=== PATIENT | female | born 1970 | race Caucasian/White ===

== ENCOUNTER 2019-06-25 06:01 | Emergency (ER) | payer OTHER ==
[2019-06-25 06:18] VITALS: RESP 18
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
[2019-06-25 06:52] VITALS: BP 135/88; PULSE 78; TEMP 98
== END 2019-06-25 06:53 | disposition home or self-care (01) ==
LOC: EC 06:01
DX: L03.115 Cellulitis of right lower limb (principal); L98.9 Disorder of the skin and subcutaneous tissue, unspecified; Z87.891 Personal history of nicotine dependence
CPT/HCPCS: 99282

== ENCOUNTER → 2019-11-12 | Outpatient (CLI) | payer OTHER ==
--- NOTE | 2019-11-15 07:57 | MM ---
Reason for exam: screening (asymptomatic). Baseline mammogram. History: Patient is postmenopausal. Physical Findings: Nurse did not find any significant physical abnormalities on exam. MG Screening Mammo w CAD Bilateral CC and MLO view(s) were taken. The breast tissue is almost entirely fat. Finding: There is a high density, circumscribed oval mass located 7 cm from the nipple in the 6 o'clock position of the left breast. These results were verbally communicated with the patient and result sheet given to the patient on 11/12/19. ASSESSMENT: Incomplete: need additional imaging evaluation, BI-RAD 0 RECOMMENDATION: Special view mammogram of the left breast.
--- NOTE | 2019-11-15 07:58 | MM ---
Reason for exam: additional evaluation requested from abnormal screening. History: Patient is postmenopausal. Physical Findings: Breast exam preformed at baseline screening. MG Work Up Mamm w CAD LT CC and MLO view(s) were taken of the left breast. There are scattered fibroglandular densities. Persistent mass left breast. These results were verbally communicated with the patient and result sheet given to the patient on 11/12/19. ASSESSMENT: Incomplete: need additional imaging evaluation, BI-RAD 0 RECOMMENDATION: Ultrasound of the left breast.
--- NOTE | 2019-11-15 08:00 | USB ---
Reason for exam: additional evaluation requested from abnormal screening. History: Patient is postmenopausal. US Breast Workup Limited LT Left limited breast ultrasound including focal area of concern, retroareolar and axilla demonstrates a 1.3 x 2.0 x 1.2cm oval, lobular, cystic cluster at 6 o'clock. These results were verbally communicated with the patient and result sheet given to the patient on 11/12/19. ASSESSMENT: Suspicious, BI-RAD 4 RECOMMENDATION: Ultrasound core biopsy of the left breast. (6 o'clock) Called Dr. Jennings office with mammographic findings and has scheduled an appointment for the patient for 12/16/19 at 12:[address] Rodgers. Biopsy scheduled for 12/01/19 at 8:00. PRELIMINARY REPORT CALLED AND FAXED TO DR. RODGERS ON 11/12/19.
== END | disposition home or self-care (01) ==
LOC: RADMAMWWP 13:13
PROVIDERS: ATTEND Family Medicine
DX: Z12.31 Encounter for screening mammogram for malignant neoplasm of breast (principal); R92.8 Other abnormal and inconclusive findings on diagnostic imaging of breast
CPT/HCPCS: 77065; 77067

== ENCOUNTER → 2019-12-01 | Day surgery (SDC) | payer OTHER ==
[2019-12-01 07:20] VITALS: RESP 16
[2019-12-01 08:57] VITALS: BP 111/76; PULSE 64; TEMP 98
--- NOTE | 2019-12-01 09:19 | USB ---
EXAMINATION TYPE: US breast aspiration single LT DATE OF EXAM: 12/01/2019 CLINICAL HISTORY: R92.8 abnl mammogram. TECHNIQUE: Ultrasound guided vaccuum assisted core biopsy of left breast. COMPARISON: 11/12/2019 ultrasound FINDINGS: The ultrasound guided cyst aspiration procedure was explained to the patient. The risks, b enefits, alternatives were discussed. An informed consent was then obtained. Timeout was performed. The patient was placed in supine positioning for imaging and for the procedure. The overlying skin w as prepped with betadine and sterilely draped in usual sterile fashion. Lidocaine 1% was used as ane sthetic into the skin and deeper breast tissue up to area of concern in the breast. Under ultrasound guidance, an 18-gauge vacuum assisted cyst aspiration device was used to obtain flui d sample. A ribbon biopsy clip was left in lesion. Good hemostasis was obtained with direct pressure. Discharge instructions were discussed with the pa gaby. The patient will follow up with the referring physician for results. Postprocedure mammogram: The patient was transferred to mammography for physician ordered post proced ure mammogram for clip placement verification. The clip is in the expected region of the cyst aspira tion. The patient tolerated the procedure well without any immediate complication. The patient was dischar ged to home in stable condition. IMPRESSION: 1. Successful cyst aspiration left breast.
== END ==
LOC: RADUSWWP 06:55
PROVIDERS: ATTEND Surgery
DX: N60.02 Solitary cyst of left breast (principal)
CPT/HCPCS: 88108; 88305; 77065; 76942; 19000; A4648; J2001

== ENCOUNTER → 2020-01-20 | Outpatient (CLI) | payer OTHER ==
[2020-01-20 14:36] VITALS: BP 131/88; PULSE 89; RESP 18; TEMP 97.7
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
== END | disposition home or self-care (01) ==
LOC: WWCWWP 14:19
PROVIDERS: ATTEND Surgery
DX: Z53.9 Procedure and treatment not carried out, unspecified reason (principal)

== ENCOUNTER → 2020-06-05 | Outpatient (CLI) | payer OTHER ==
--- NOTE | 2020-06-05 14:18 | USB ---
Reason for exam: follow-up at short interval from prior study. History: Patient is postmenopausal. Benign US breast aspiration single LT of the left breast, December 01, 2019. Physical Findings: Nurse did not find any significant physical abnormalities on exam. US Breast Limited LT Left limited breast ultrasound including focal area of concern, retroareolar and axilla demonstrates no cystic or solid lesion seen. Scanned 4-7 o'clock. Patient can return to normal screening. These results were verbally communicated with the patient and result sheet given to the patient on 06/05/20. ASSESSMENT: Negative, BI-RAD 1 RECOMMENDATION: Return to routine screening mammogram schedule for both breasts. Back on schedule.
== END | disposition home or self-care (01) ==
LOC: RADUSWWP 13:12
PROVIDERS: ATTEND Surgery
DX: R92.8 Other abnormal and inconclusive findings on diagnostic imaging of breast (principal)

== ENCOUNTER 2020-08-29 13:39 | Emergency (ER) | payer OTHER ==
[2020-08-29] MEDS ORDERED: ACETAMINOPHEN TAB 500 MG TAB PO STA (14:18)
--- NOTE | 2020-08-29 14:45 | XR ---
EXAMINATION TYPE: XR chest 1V portable DATE OF EXAM: 08/29/2020 COMPARISON: NONE HISTORY: Chest pain TECHNIQUE: Single frontal view of the chest is obtained. FINDINGS: Rounded patchy density right infrahilar region and right midlung zone may reflect developing pneumoni a. Infiltrates of other etiology not excluded. Correlate clinically and progress studies are advised. The cardiac silhouette size is within normal limits. The osseous structures are intact. IMPRESSION: 1. Rounded patchy density right infrahilar region and right midlung zone may reflect developing pneu monia. Infiltrates of other etiology not excluded.
--- NOTE | 2020-08-29 15:04 | ED ---
General Adult HPI - General Chief complaint: Upper Respiratory Infection Stated complaint: Cough,SOB,fever Time Seen by Provider: 08/29/20 13:53 Source: patient Mode of arrival: ambulatory Limitations: no limitations - History of Present Illness Initial comments: 50-year-old female presents to the emergency room for a chief complaint of not feeling well 6 days. Patient reports she has had a cough for the past 6 days. States she also felt somewhat short of breath and been congested. Patient had fevers as well that started over the weekend. Patient reports she was exposed to rotavirus. States her daughter came home with as well as her sister's.Patient has no other complaints at this time including chest pain, abdominal pain, nausea or vomiting, headache, or visual changes. - Related Data Home Medications Medication Instructions Recorded Confirmed Ibuprofen [Motrin Ib] 400 mg PO Q8H PRN 08/29/20 08/29/20 Phenylephrine HCl [Sudafed PE] 2 mg PO DAILY PRN 08/29/20 08/29/20 Previous Rx's Medication Instructions Recorded Benzonatate [Tessalon Perles] 200 mg PO Q8H PRN #15 capsule 08/29/20 Dexamethasone [Decadron] 6 mg PO DAILY 7 Days #7 tablet 08/29/20 Allergies Allergy/AdvReac Type Severity Reaction Status Date / Time No Known Allergies Allergy Verified 08/29/20 14:08 Review of Systems ROS Statement: Those systems with pertinent positive or pertinent negative responses have been documented in the HPI. ROS Other: All systems not noted in ROS Statement are negative. Past Medical History Past Medical History: Diabetes Mellitus, Hyperlipidemia, Hypertension History of Any Multi-Drug Resistant Organisms: None Reported Past Surgical History: Orthopedic Surgery Additional Past Surgical History / Comment(s): right leg with pins and plate, RIGHT ANKLE PINS Past Anesthesia/Blood Transfusion Reactions: No Reported Reaction Past Psychological History: No Psychological Hx Reported Smoking Status: Never smoker Past Alcohol Use History: None Reported Past Drug Use History: None Reported General Exam Limitations: no limitations General appearance: alert, in no apparent distress Head exam: Present: atraumatic, normocephalic, normal inspection Eye exam: Present: normal appearance, PERRL, EOMI. Absent: scleral icterus, conjunctival injection, periorbital swelling ENT exam: Present: normal exam, mucous membranes moist Neck exam: Present: normal inspection, full ROM. Absent: tenderness, meningismus, lymphadenopathy Respiratory exam: Present: normal lung sounds bilaterally. Absent: respiratory distress, wheezes, rales, rhonchi, stridor Cardiovascular Exam: Present: regular rate, normal rhythm, normal heart sounds. Absent: systolic murmur, diastolic murmur, rubs, gallop, clicks GI/Abdominal exam: Present: soft, normal bowel sounds. Absent: distended, tenderness, guarding, rebound, rigid Course Vital Signs 08/29/20 08/29/20 08/29/20 13:42 14:09 14:32 Temperature 98.0 F 98.9 F Pulse Rate 119 H 113 H Respiratory 24 22 Rate Blood Pressure 130/80 101/81 O2 Sat by Pulse 97 94 L Oximetry 08/29/20 15:00 Temperature 101.4 F H Pulse Rate Respiratory Rate Blood Pressure O2 Sat by Pulse Oximetry Medical Decision Making - Medical Decision Making Vitals are stable. Patient does have a fever of 101.4. This is likely the cause of her initial tachycardia. This did improve throughout her stay. Patient's oxygenation is 94-97% on room air. She is not in any respiratory distress. She did test positive for Crohn a virus. Chest x-ray did reveal an infiltrate however given density of the infiltrate I did recommend a repeat chest x-ray to rule out any other cause and to make sure it is improving after coronavirus. Patient is stable for discharge and outpatient management which she has control with. She is agreeable to antibody infusing. I did discuss the emergency use authorization as well as the risks with patient. Patient will follow-up with her doctor. She will return here for any worsening symptoms. - Lab Data Lab Results 08/29/20 Range/Units 13:44 Influenza Type A (PCR) Not Detected (Not Detectd) Influenza Type B (PCR) Not Detected (Not Detectd) RSV (PCR) Not Detected (Not Detectd) SARS-CoV-2 (PCR) Detected A (Not Detectd) Disposition Clinical Impression: COVID-19 Disposition: HOME SELF-CARE Condition: Good Instructions (If sedation given, give patient instructions): Coronavirus Disease 2019 (COVID-19) Additional Instructions: Please take [id number] vitamin D. Take prescription medications as directed. Follow up with your doctor. You should have a repeat chest x-ray performed. Return to the emergency room for any worsening symptoms. Prescriptions: Dexamethasone [Decadron] 6 mg PO DAILY 7 Days #7 tablet Benzonatate [Tessalon Perles] 200 mg PO Q8H PRN #15 capsule PRN Reason: Cough Is patient prescribed a controlled substance at d/c from ED?: No Referrals: Alexis Jennings MD [Primary Care Provider] - 1-2 days Time of Disposition: 15:58
[2020-08-29] MEDS ORDERED: BAMLANIVIMAB (EUA) 700 MG, ETESEVIMAB (EUA) 1,400 MG in SODIUM CHLORIDE 0.9% 50 ML IVPB ONE (16:30)
[2020-08-29 16:38] VITALS: TEMP 98.5
[2020-08-29] MEDS ORDERED: SODIUM CHLORIDE 0.9% 50 ML IVPB ONE (17:00)
[2020-08-29 17:18] VITALS: RESP 20
[2020-08-29 18:49] VITALS: BP 118/74; PULSE 95
== END 2020-08-29 18:35 | disposition home or self-care (01) ==
LOC: EC 13:39
DX: U07.1 COVID-19 (principal); E11.9 Type 2 diabetes mellitus without complications; E78.5 Hyperlipidemia, unspecified; I10 Essential (primary) hypertension
CPT/HCPCS: 87636; 71045; 99285; 96365; 96361; Q0245

== ENCOUNTER 2020-12-01 13:08 | Emergency (ER) | payer OTHER ==
[2020-12-01 13:12] VITALS: RESP 18; TEMP 98.4
[2020-12-01] MEDS ORDERED: SODIUM CHLORIDE 0.9% 1,000 ML IV STA (13:39)
[2020-12-01] MEDS ORDERED: ONDANSETRON 4 MG/2 ML VIAL IVP STA (13:39)
--- NOTE | 2020-12-01 13:46 | ED ---
General Adult HPI - General Source: patient, RN notes reviewed, old records reviewed Mode of arrival: wheelchair Limitations: no limitations - History of Present Illness -: days(s) (6) Location: head Radiation: non-radiation Severity scale (1-10): 7 Quality: aching Consistency: constant Improves with: none Worsens with: none Associated Symptoms: fever/chills, headaches, nausea/vomiting, other (Dizziness) Treatments Prior to Arrival: none <Len Almazan - Last Filed: 12/01/20 19:08> <Mike Medrano - Last Filed: 12/01/20 23:50> - General Chief complaint: Headache Stated complaint: dizziness, headaches - History of Present Illness Initial comments: 50-year-old white female, alert and oriented 4, presents to the emergency room with headache since Friday with some dizziness and nausea and vomiting. Patient states that for the past 3 days she's had fever and chills but did not actually check her temperature she does not have a thermometer. Patient states that it i s a frontal headache but also goes to the back of her head. She states that she is a lwt-nhjofwn-bfbdunlly diabetic and does have high blood pressure but she has not been taking her medications for over a year. She states that she did try to eat a hamburger yesterday but vomited. She denies any abdominal pain. She does state this is the worst headache of her life. She is a nonsmoker, denies any drug use. She states that she was trying Tylenol and her last dose was yesterday with no relief. (Len Almazan) - Related Data Home Medications Medication Instructions Recorded Confirmed Acetaminophen Tab [Tylenol Tab] 1,000 mg PO Q6HR PRN 12/01/20 12/01/20 Acetaminophen/Diphenhydramine 2 tab PO HS PRN 12/01/20 12/01/20 [Tylenol PM 500-25mg] Previous Rx's Medication Instructions Recorded Cephalexin [Keflex] 500 mg PO BID 7 Days #14 cap 12/01/20 metFORMIN HCL [Glucophage] 500 mg PO BID 30 Days #60 tab 12/01/20 Allergies Allergy/AdvReac Type Severity Reaction Status Date / Time No Known Allergies Allergy Verified 12/01/20 16:04 Review of Systems ROS Other: All systems not noted in ROS Statement are negative. <Len Almazan - Last Filed: 12/01/20 19:08> ROS Other: All systems not noted in ROS Statement are negative. <MitchellMike - Last Filed: 12/01/20 23:50> ROS Statement: Those systems with pertinent positive or pertinent negative responses have been documented in the HPI. Past Medical History Past Medical History: Diabetes Mellitus, Hyperlipidemia, Hypertension History of Any Multi-Drug Resistant Organisms: None Reported Past Surgical History: Orthopedic Surgery Additional Past Surgical History / Comment(s): right leg with pins and plate, RIGHT ANKLE PINS Past Anesthesia/Blood Transfusion Reactions: No Reported Reaction Past Psychological History: No Psychological Hx Reported Smoking Status: Never smoker Past Alcohol Use History: None Reported Past Drug Use History: None Reported <harlnaLen - Last Filed: 12/01/20 19:08> General Exam Limitations: no limitations General appearance: alert, in no apparent distress Head exam: Present: atraumatic, normocephalic, normal inspection Eye exam: Present: normal appearance, PERRL, EOMI. Absent: scleral icterus, conjunctival injection, periorbital swelling Pupils: Present: normal accommodation ENT exam: Present: normal exam, normal oropharynx, mucous membranes moist Neck exam: Present: normal inspection, full ROM. Absent: tenderness, meningismus, lymphadenopathy, thyromegaly Respiratory exam: Present: normal lung sounds bilaterally. Absent: respiratory distress, wheezes, rales, rhonchi, stridor, chest wall tenderness, accessory muscle use, decreased breath sounds, prolonged expiratory Cardiovascular Exam: Present: tachycardia. Absent: JVD GI/Abdominal exam: Present: soft, normal bowel sounds. Absent: distended, tenderness, guarding, rebound, rigid Extremities exam: Present: normal inspection, full ROM, normal capillary refill, other (chronic Swelling to the right ankle from a previous fracture years ago). Absent: tenderness, pedal edema, joint swelling, calf tenderness Back exam: Present: full ROM. Absent: tenderness, CVA tenderness (R), CVA tenderness (L), muscle spasm, paraspinal tenderness, vertebral tenderness, rash noted Neurological exam: Present: alert, oriented X3, CN II-XII intact Expanded Patient oriented to: Present: person, place, time Speech: Present: fluid speech Cranial nerves: EOM's Intact: Normal, Gag Reflex: Normal, Tongue Deviation: Normal Eye Response: (4) open spontaneously Motor Response: (6) obeys commands Verbal Response: (5) oriented Lukasz Total: 15 Psychiatric exam: Present: normal affect, normal mood Skin exam: Present: warm, dry, intact, normal color. Absent: rash, cyanosis, diaphoretic, erythema, petechiae, pallor, mottled <Len Almazan - Last Filed: 12/01/20 19:08> Course Vital Signs 12/01/20 12/01/20 13:09 17:24 Temperature 98.4 F Pulse Rate 103 H 88 Respiratory 18 18 Rate Blood Pressure 135/84 126/80 O2 Sat by Pulse 97 99 Oximetry EKG Findings - EKG Results: EKG: WNL, sinus rhythm (Ventricular rate 97, NH interval 0.132, QRS of 0.86, QTC of .464) <Len Almazan - Last Filed: 12/01/20 19:08> Procedures <Len Almazan - Last Filed: 12/01/20 19:08> - Procedures Initial comment: Tristan-Pen intraocular pressure readings are 18 and left eye and 18 in the right eye (Len Almazan) Medical Decision Making - Lab Data Result diagrams: 12/01/20 13:52 12/01/20 13:52 <Len Almazan - Last Filed: 12/01/20 19:08> - Lab Data Result diagrams: 12/01/20 13:52 12/01/20 13:52 <Mike Medrano - Last Filed: 12/01/20 23:50> - Medical Decision Making EKG shows normal sinus rhythm with no ST elevation, troponin is negative at 0.012. Her WBC count is 8.7 and she has a cloudy yellow urine showing 4+ ketones, 4+ glucose, large leukocyte esterase, 109 wbc's and she was treated with 1 g of Rocephin. Patient has not been taking her diabetes medicine or her blood pressure medicine in over a year. Chest x-ray shows no acute pulmonary process. Cardiac silhouette stable. CT of the brain shows a large empty sella cannot exclude the possibility of pseudotumor cerebri. There is no mass or midline shift. There is no acute intracranial hemorrhage. Intraocular pressures bilaterally are 18 by Tristan-Pen. Case discussed with Dr. Medrano. Patient will be discharged home with ophthalmology and neurology consults. Directed to return if any increasing headaches or worsening symptoms. Contact her primary care doctor for management of diabetes and hypertension. Patient was prescribed metformin at discharge. Blood pressure was stable. (Len Almazan) headache resolved after administration of analgesia medications. Strict return precautions discussed for return if worsening headaches, visual deficits, or neurological symptoms otherwise. (Mike Medrano) - Lab Data Lab Results 12/01/20 12/01/20 12/01/20 Range/Units 13:52 13:52 13:52 WBC 8.7 (3.8-10.6) k/uL RBC 5.33 (3.80-5.40) m/uL Hgb 14.8 (11.4-16.0) gm/dL Hct 44.6 (34.0-46.0) % MCV 83.6 (80.0-100.0) fL MCH 27.7 (25.0-35.0) pg MCHC 33.1 (31.0-37.0) g/dL RDW 13.0 (11.5-15.5) % Plt Count 261 (150-450) k/uL MPV 8.7 Neutrophils % 75 % Lymphocytes % 14 % Monocytes % 4 % Eosinophils % 1 % Basophils % 1 % Neutrophils # 6.6 (1.3-7.7) k/uL Lymphocytes # 1.3 (1.0-4.8) k/uL Monocytes # 0.4 (0-1.0) k/uL Eosinophils # 0.1 (0-0.7) k/uL Basophils # 0.1 (0-0.2) k/uL Sodium 133 L (137-145) mmol/L Potassium 3.4 L (3.5-5.1) mmol/L Chloride 94 L (98-107) mmol/L Carbon Dioxide 22 (22-30) mmol/L Anion Gap 17 mmol/L BUN 15 (7-17) mg/dL Creatinine 0.77 (0.52-1.04) mg/dL Est GFR (CKD-EPI)AfAm >90 (>60 ml/min/1.73 sqM) Est GFR (CKD-EPI)NonAf >90 (>60 ml/min/1.73 sqM) Glucose 285 H (74-99) mg/dL Calcium 9.4 (8.4-10.2) mg/dL Total Bilirubin 1.1 (0.2-1.3) mg/dL AST 28 (14-36) U/L ALT 30 (4-34) U/L Alkaline Phosphatase 129 H (38-126) U/L Troponin I (0.000-0.034) ng/mL Total Protein 7.1 (6.3-8.2) g/dL Albumin 4.1 (3.5-5.0) g/dL Amylase 43 (30-110) U/L Lipase 78 (23-300) U/L Urine Color Yellow Urine Appearance Cloudy H (Clear) Urine pH 5.5 (5.0-8.0) Ur Specific [place] 1.019 (1.001-1.035) Urine Protein 1+ H (Negative) Urine Glucose (UA) 4+ H (Negative) Urine Ketones 4+ H (Negative) Urine Blood Trace H (Negative) Urine Nitrite Negative (Negative) Urine Bilirubin Negative (Negative) Urine Urobilinogen 2.0 (<2.0) mg/dL Ur Leukocyte Esterase Large H (Negative) Urine RBC 6 H (0-5) /hpf Urine WBC 109 H (0-5) /hpf Urine WBC Clumps Few H (None) /hpf Ur Squamous Epith Cells 15 H (0-4) /hpf Urine Bacteria Many H (None) /hpf Hyaline Casts 11 H (0-2) /lpf Urine Mucus Few H (None) /hpf Urine Yeast (Budding) Few H (None) /hpf 12/01/20 Range/Units 13:52 WBC (3.8-10.6) k/uL RBC (3.80-5.40) m/uL Hgb (11.4-16.0) gm/dL Hct (34.0-46.0) % MCV (80.0-100.0) fL MCH (25.0-35.0) pg MCHC (31.0-37.0) g/dL RDW (11.5-15.5) % Plt Count (150-450) k/uL MPV Neutrophils % % Lymphocytes % % Monocytes % % Eosinophils % % Basophils % % Neutrophils # (1.3-7.7) k/uL Lymphocytes # (1.0-4.8) k/uL Monocytes # (0-1.0) k/uL Eosinophils # (0-0.7) k/uL Basophils # (0-0.2) k/uL Sodium (137-145) mmol/L Potassium (3.5-5.1) mmol/L Chloride (98-107) mmol/L Carbon Dioxide (22-30) mmol/L Anion Gap mmol/L BUN (7-17) mg/dL Creatinine (0.52-1.04) mg/dL Est GFR (CKD-EPI)AfAm (>60 ml/min/1.73 sqM) Est GFR (CKD-EPI)NonAf (>60 ml/min/1.73 sqM) Glucose (74-99) mg/dL Calcium (8.4-10.2) mg/dL Total Bilirubin (0.2-1.3) mg/dL AST (14-36) U/L ALT (4-34) U/L Alkaline Phosphatase (38-126) U/L Troponin I <0.012 (0.000-0.034) ng/mL Total Protein (6.3-8.2) g/dL Albumin (3.5-5.0) g/dL Amylase (30-110) U/L Lipase (23-300) U/L Urine Color Urine Appearance (Clear) Urine pH (5.0-8.0) Ur Specific [place] (1.001-1.035) Urine Protein (Negative) Urine Glucose (UA) (Negative) Urine Ketones (Negative) Urine Blood (Negative) Urine Nitrite (Negative) Urine Bilirubin (Negative) Urine Urobilinogen (<2.0) mg/dL Ur Leukocyte Esterase (Negative) Urine RBC (0-5) /hpf Urine WBC (0-5) /hpf Urine WBC Clumps (None) /hpf Ur Squamous Epith Cells (0-4) /hpf Urine Bacteria (None) /hpf Hyaline Casts (0-2) /lpf Urine Mucus (None) /hpf Urine Yeast (Budding) (None) /hpf Disposition Is patient prescribed a controlled substance at d/c from ED?: No Time of Disposition: 17:19 <Len Almazan - Last Filed: 12/01/20 19:08> <Mike Medrano - Last Filed: 12/01/20 23:50> Clinical Impression: Headache, Urinary tract infection, Hyperglycemia Disposition: HOME SELF-CARE Condition: Good Instructions (If sedation given, give patient instructions): Urinary Tract Infection in Women (ED), Acute Headache (ED) Additional Instructions: Take medication as prescribed follow up with her primary care doctor in 1 week for diabetes and hypertension medications. Return if any worsening symptoms including worsening headache, fevers, nausea vomiting. Also follow-up with ophthalmology and neurology is referred. Prescriptions: metFORMIN HCL [Glucophage] 500 mg PO BID 30 Days #60 tab Cephalexin [Keflex] 500 mg PO BID 7 Days #14 cap Referrals: Alexis Jennings MD [Primary Care Provider] - 1-2 days Chandra Fountain MD [STAFF PHYSICIAN] - 1-2 days Bill Brown MD [STAFF PHYSICIAN] - 1-2 days
[2020-12-01 14:33] LABS: Basophils # (A) 0.1 k/uL (0-0.2); Basophils % (A) 1 %; Eosinophils # (A) 0.1 k/uL (0-0.7); Eosinophils % (A) 1 %; HCT 44.6 % (34.0-46.0); HGB 14.8 gm/dL (11.4-16.0); Lymphocytes # (A) 1.3 k/uL (1.0-4.8); Lymphocytes % (A) 14 %; MCH 27.7 pg (25.0-35.0); MCHC 33.1 g/dL (31.0-37.0); MCV 83.6 fL (80.0-100.0); Mean Platelet Volume 8.7; Monocytes # (A) 0.4 k/uL (0-1.0); Monocytes % (A) 4 %; Neutrophils # (A) 6.6 k/uL (1.3-7.7); Neutrophils % (A) 75 %; Platelet Count 261 k/uL (150-450); RBC 5.33 m/uL (3.80-5.40); WBC 8.7 k/uL (3.8-10.6)
[2020-12-01 14:40] LABS: Appearance,Urine Cloudy (Clear); Bacteria,Urine Many /hpf; Bilirubin,Urine Negative (Negative); Blood,Urine Trace (Negative); Budding Yeast,Urine Few /hpf; Color,Urine Yellow; Glucose,Urine (UA) 4+ (Negative); Hyaline Casts,Urine 11 /lpf (0-2); Leukocyte Esterase,Urine Large (Negative); Mucus,Urine Few /hpf; Nitrite,Urine Negative (Negative); PH, Urine 5.5 (5.0-8.0); Protein,Urine 1+ (Negative); RBC,Urine 6 /hpf (0-5); Specific Gravity,Urine 1.019 (1.001-1.035); Squamous Epithelial Cell,Urine 15 /hpf (0-4); WBC,Urine 109 /hpf (0-5)
[2020-12-01 14:44] LABS: ALT 30 U/L (4-34); AST 28 U/L (14-36); African American GFR (CKD) >90 (>60 ml/min/1.73 sqM); Albumin 4.1 g/dL (3.5-5.0); Alkaline Phosphatase 129 U/L (38-126); Amylase 43 U/L (30-110); Anion Gap 17 mmol/L; Blood Urea Nitrogen 15 mg/dL (7-17); Calcium 9.4 mg/dL (8.4-10.2); Carbon Dioxide 22 mmol/L (22-30); Chloride 94 mmol/L (98-107); Glucose 285 mg/dL (74-99); Lipase 78 U/L (23-300); Non-African American GFR(CKD) >90 (>60 ml/min/1.73 sqM); Potassium 3.4 mmol/L (3.5-5.1); Sodium 133 mmol/L (137-145); Total Bilirubin 1.1 mg/dL (0.2-1.3); Total Protein 7.1 g/dL (6.3-8.2)
[2020-12-01 14:49] LABS: Ketones,Urine 4+ (Negative)
--- NOTE | 2020-12-01 14:57 | CT ---
EXAMINATION TYPE: CT brain wo con DATE OF EXAM: 12/01/2020 COMPARISON: None HISTORY: 50-year-old female Headache. TECHNIQUE: Examination was done in axial plane without intravenous contrast. Coronal and sagittal r econstructions performed. CT DLP: 1170.4 mGycm Automated exposure control for dose reduction was used. FINDINGS: There is no evidence of acute intracranial hemorrhage, acute ischemic changes, mass, mass-effect, or extra-axial fluid collection. There is no effacement of cerebral sulci or basal subarachnoid cister ns. There is no hydrocephalus. There is no midline shift. Lopez-white matter distinction is preserv ed. Mild bifrontal cerebral cortical volume loss. There is a large empty sella noted. Paranasal sinuses and mastoid air cells are pneumatized. Orbits and globes are intact. Slight rightwa rd nasal septal deviation. IMPRESSION: Large empty sella. Given patient's demographics and headache, correlate to exclude the possibility of pseudotumor cerebri. Otherwise, no acute intracranial abnormality seen.
--- NOTE | 2020-12-01 15:42 | XR ---
EXAMINATION TYPE: XR chest 2V DATE OF EXAM: 12/01/2020 COMPARISON: Chest x-ray August 29, 2020 HISTORY: Dizziness and weakness. TECHNIQUE: Frontal and lateral views of the chest are obtained. FINDINGS: Slightly suboptimal due to large body habitus. Improved inspiration on current study. There is no suspicious focal air space opacity, pleural effusion, or pneumothorax seen. The cardiac silho uette size is stable and upper limits of normal. The osseous structures are intact. IMPRESSION: No acute pulmonary process currently.
[2020-12-01] MEDS ORDERED: MORPHINE SULFATE 2 MG/ML SYRINGE IVP ONE (16:38)
[2020-12-01 17:26] VITALS: BP 126/80; PULSE 88
== END 2020-12-01 17:28 | disposition home or self-care (01) ==
LOC: EC 13:08
DX: R51.9 Headache, unspecified (principal); N39.0 Urinary tract infection, site not specified; E11.65 Type 2 diabetes mellitus with hyperglycemia; I10 Essential (primary) hypertension
CPT/HCPCS: 36415; 93005; 80053; 82150; 83690; 84484; 85025; 81001; 87086; 87077; 87186; 71046; 70450; 99284; 96365; 96375; 96361; J2405; J0696

== ENCOUNTER 2021-01-09 14:32 | Emergency (ER) | payer OTHER ==
[2021-01-09 15:05] VITALS: BP 146/94; PULSE 92; RESP 20; TEMP 98.4
[2021-01-09] MEDS ORDERED: MORPHINE SULFATE 4 MG/ML SYRINGE IM STA (15:18)
--- NOTE | 2021-01-09 16:05 | CT ---
EXAMINATION TYPE: CT pelvis wo con DATE OF EXAM: 01/09/2021 COMPARISON: None HISTORY: Lump on left buttocks CT DLP: 814.5 mGycm Automated exposure control for dose reduction was used. Helical imaging through the pelvis without co ntrast FINDINGS: Lack of intravenous contrast could compromise the exam. Within the perianal soft tissues there is a focus of low-attenuation measuring 4 cm in cephalad to ca udal dimension by 2.5 cm in AP dimension by 2 cm in transverse dimension just deep to the skin the me dial aspect of the left gluteal region. Patient is post intramedullary kelechi along the left femur which is partially visualized. There is marke d arthropathy involving the left hip, remodeling of the femoral head and acetabulum, loss of joint sp dada, subchondral geode formation and eburnation, correlate for possible osteonecrosis and osteoarthri tis. The liver shows low attenuation in its visualized portions possibly due to underlying hepatic steatos is. No evident bowel obstruction. Bulky appearance of the uterus may be due to fibroids. Urinary blad nate is unremarkable. No free fluid in the pelvis, no evident adenopathy. No bowel obstruction. Degene rative disc disease present at the lower lumbar spine with associated facet arthropathy. IMPRESSION: FINDINGS MAY REPRESENT SUBCUTANEOUS FAT PHLEGMON OR POSSIBLY SMALL ABSCESS DESCRIBED. Noncontrast exam.
--- NOTE | 2021-01-09 16:08 | ED ---
Skin/Abscess/FB HPI - General Chief complaint: Skin/Abscess/Foreign Body Stated complaint: Lump on butt Time Seen by Provider: 01/09/21 15:10 Source: patient, RN notes reviewed Mode of arrival: ambulatory Limitations: no limitations - History of Present Illness Initial comments: She is a 50-year-old female that presents to emergency department with a bump on her left butt cheek. She notes that she's been living and well for the past all days but today got larger and extremity painful. She denied any other issues or complaints at this time. She was otherwise a well-appearing 50-year-old female in no apparent distress or pain. She denied any chest pain shortness of breath headache nausea vomiting diarrhea constipation fever fatigue chills. - Related Data Home Medications Medication Instructions Recorded Confirmed Acetaminophen Tab [Tylenol Tab] 1,000 mg PO Q6HR PRN 12/01/20 12/01/20 Acetaminophen/Diphenhydramine 2 tab PO HS PRN 12/01/20 12/01/20 [Tylenol PM 500-25mg] Previous Rx's Medication Instructions Recorded Cephalexin [Keflex] 500 mg PO BID 7 Days #14 cap 12/01/20 metFORMIN HCL [Glucophage] 500 mg PO BID 30 Days #60 tab 12/01/20 Amoxicillin/Potassium Clav 1 tab PO Q12HR #20 tab 01/09/21 [Augmentin 875-125 Tablet] Allergies Allergy/AdvReac Type Severity Reaction Status Date / Time No Known Allergies Allergy Verified 01/09/21 15:05 Review of Systems ROS Statement: Those systems with pertinent positive or pertinent negative responses have been documented in the HPI. ROS Other: All systems not noted in ROS Statement are negative. Past Medical History Past Medical History: Diabetes Mellitus, Hyperlipidemia, Hypertension History of Any Multi-Drug Resistant Organisms: None Reported Past Surgical History: Orthopedic Surgery Additional Past Surgical History / Comment(s): right leg with pins and plate, RIGHT ANKLE PINS Past Anesthesia/Blood Transfusion Reactions: No Reported Reaction Past Psychological History: No Psychological Hx Reported Smoking Status: Never smoker Past Alcohol Use History: None Reported Past Drug Use History: None Reported General Exam Limitations: no limitations General appearance: alert, in no apparent distress Head exam: Present: atraumatic, normocephalic, normal inspection Eye exam: Present: normal appearance, PERRL, EOMI. Absent: scleral icterus, conjunctival injection, periorbital swelling Neck exam: Present: normal inspection Respiratory exam: Present: normal lung sounds bilaterally. Absent: respiratory distress, wheezes, rales, rhonchi, stridor Cardiovascular Exam: Present: regular rate, normal rhythm, normal heart sounds. Absent: systolic murmur, diastolic murmur, rubs, gallop, clicks GI/Abdominal exam: Present: soft, normal bowel sounds. Absent: distended, tenderness, guarding, rebound, rigid Rectal exam: Present: normal inspection, hemorrhoids Extremities exam: Present: normal inspection, full ROM, normal capillary refill. Absent: tenderness, pedal edema, joint swelling, calf tenderness Neurological exam: Present: alert, oriented X3 Psychiatric exam: Present: normal affect, normal mood Skin exam: Present: warm, dry, intact, normal color. Absent: rash Expanded Type of lesion: Present: abscess (In her left butt cheek measuring approximately 4 cm x 3 cm, erythematous, tender.) Course Vital Signs 01/09/21 15:02 Temperature 98.4 F Pulse Rate 92 Respiratory 20 Rate Blood Pressure 146/94 O2 Sat by Pulse 99 Oximetry Procedures - Incision & Drainage Consent Obtained: verbal consent Site: buttock (Left butt cheek) Size (cm): 5 Anesthetic Used: lidocaine 1% Amount (mLs): 10 I&D Cleaning Method: Betadine Sterile Field Used?: Yes Scalpel Used: #11 Irrigation Performed?: Yes I&D Drainage Obtained: Pus, Blood Culture Obtained?: Yes Patient Tolerated Procedure: well, no complications Medical Decision Making - Medical Decision Making 50-year-old female with an abscess to the left butt cheek. CT the abdomen and pelvis ordered to check depth of abscess. Patient tolerated incision and drainage well. Antibiotics sent to pharmacy. Case discussed with Dr. Garcia, patient can discharge home with follow-up to primary care. - Radiology Data Radiology results: report reviewed, image reviewed The abdomen and pelvis: Within the perianal soft tissues there is a focus of low attenuating measuring 4 cm pain cephalad to caudal dimension by 2.5 cm in AP dimension by 2 cm in transverse time and some just deep to the skin the medial aspect of the left gluteal region. Findings may represent subcutaneous fat phlegmon or possibly small abscess as described. Disposition Clinical Impression: Left buttock abscess Disposition: HOME SELF-CARE Condition: Stable Instructions (If sedation given, give patient instructions): Abscess Incision and Drainage (ED), Abscess (ED) Additional Instructions: Please return to the Emergency Department if symptoms worsen or any other concerns. Follow-up primary care 1-2 days. Take antibiotics as prescribed until complete. Tylenol Motrin as needed for pain. Is patient prescribed a controlled substance at d/c from ED?: No Referrals: Alexis Jennings MD [Primary Care Provider] - 1-2 days Time of Disposition: 17:30
[2021-01-09] MEDS ORDERED: LIDOCAINE 1% INJ 10MG/ML (20 ML MDV) SQ ONE (16:14)
== END 2021-01-09 17:47 | disposition home or self-care (01) ==
LOC: EC 14:32
DX: L02.31 Cutaneous abscess of buttock (principal); E11.9 Type 2 diabetes mellitus without complications; I10 Essential (primary) hypertension
CPT/HCPCS: 72192; 99283; 10060; 96372; J2270; J2001

== ENCOUNTER 2021-02-23 13:31 | Emergency (ER) | payer OTHER ==
[2021-02-23] MEDS ORDERED: SODIUM CHLORIDE 0.9% 1,000 ML IV STA (15:22)
[2021-02-23] MEDS ORDERED: ONDANSETRON 4 MG/2 ML VIAL IVP STA (15:22)
[2021-02-23] MEDS ORDERED: SODIUM CHLORIDE 0.9% 500 ML 500 ML IV STA (15:22)
[2021-02-23] MEDS ORDERED: ACETAMINOPHEN TAB 500 MG TAB PO STA (15:22)
--- NOTE | 2021-02-23 15:42 | ED ---
Nausea/Vomiting/Diarrhea HPI - General Chief complaint: Nausea/Vomiting/Diarrhea Stated complaint: Vomiting Time Seen by Provider: 02/23/21 14:48 Source: patient, RN notes reviewed Mode of arrival: ambulatory Limitations: no limitations - History of Present Illness Initial comments: 50-year-old female presents emergency from chief complaint nausea vomiting diarrhea. Patient states this started on Friday as progressive worsening. She only has pain when she has about of emesis. She states upper abdomen. No cough or cold like symptoms. Patient states she only has a sick contact that has and diagnosed with croup. Patient had no COVID-19 exposures. No dysuria no hematuria denies any chance . Patient states that the vomiting has not slowed down. Patient has no symptom past HISTORY does not take any medications. - Related Data Previous Rx's Medication Instructions Recorded Nitrofurantoin Monohyd/M-Cryst 100 mg PO Q12HR #14 cap 02/23/21 [Macrobid] Ondansetron Odt [Zofran Odt] 4 mg PO Q6HR PRN #14 tab 02/23/21 Allergies Allergy/AdvReac Type Severity Reaction Status Date / Time No Known Allergies Allergy Verified 02/23/21 17:02 Review of Systems ROS Statement: Those systems with pertinent positive or pertinent negative responses have been documented in the HPI. ROS Other: All systems not noted in ROS Statement are negative. Past Medical History Past Medical History: Diabetes Mellitus, Hyperlipidemia, Hypertension History of Any Multi-Drug Resistant Organisms: None Reported Past Surgical History: Orthopedic Surgery Additional Past Surgical History / Comment(s): right leg with pins and plate, RIGHT ANKLE PINS Past Anesthesia/Blood Transfusion Reactions: No Reported Reaction Past Psychological History: No Psychological Hx Reported Smoking Status: Never smoker Past Alcohol Use History: None Reported Past Drug Use History: None Reported General Exam Limitations: no limitations General appearance: alert, in no apparent distress Head exam: Present: atraumatic, normocephalic, normal inspection Eye exam: Present: normal appearance, PERRL, EOMI. Absent: scleral icterus, conjunctival injection, periorbital swelling ENT exam: Present: normal exam, mucous membranes moist Neck exam: Present: normal inspection, full ROM. Absent: tenderness, meningismus, lymphadenopathy Respiratory exam: Present: normal lung sounds bilaterally. Absent: respiratory distress, wheezes, rales, rhonchi, stridor Cardiovascular Exam: Present: normal rhythm, tachycardia, normal heart sounds. Absent: systolic murmur, diastolic murmur, rubs, gallop, clicks GI/Abdominal exam: Present: soft, tenderness, normal bowel sounds. Absent: distended, guarding, rebound, rigid Neurological exam: Present: alert, oriented X3 Skin exam: Present: warm, dry, intact, normal color. Absent: rash Course Vital Signs 02/23/21 02/23/21 14:36 16:28 Temperature 101.3 F H 103 F H Pulse Rate 110 H 104 H Respiratory 20 24 Rate Blood Pressure 144/85 131/80 O2 Sat by Pulse 97 98 Oximetry Medical Decision Making - Medical Decision Making 50-year-old presented for fever nausea vomiting diarrhea. Patient unable urinary tract infection. Patient was given antibiotics, antiemetics fluid hydration. She does feel greatly improved. Patient is given 2 and half liters as she had ketonuria but she is not acidotic. Patient did have mild hyperglycemia in which she is currently on metformin. Blood sugars improved patient feels comfortable with discharge return parameters were discussed. - Lab Data Result diagrams: 02/23/21 15:44 02/23/21 15:44 Lab Results 02/23/21 02/23/21 02/23/21 Range/Units 15:44 15:44 15:44 WBC 8.9 (3.8-10.6) k/uL RBC 5.19 (3.80-5.40) m/uL Hgb 14.8 (11.4-16.0) gm/dL Hct 43.7 (34.0-46.0) % MCV 84.2 (80.0-100.0) fL MCH 28.6 (25.0-35.0) pg MCHC 34.0 (31.0-37.0) g/dL RDW 12.7 (11.5-15.5) % Plt Count 199 (150-450) k/uL MPV 7.9 Neutrophils % 81 % Lymphocytes % 12 % Monocytes % 5 % Eosinophils % 0 % Basophils % 0 % Neutrophils # 7.2 (1.3-7.7) k/uL Lymphocytes # 1.1 (1.0-4.8) k/uL Monocytes # 0.4 (0-1.0) k/uL Eosinophils # 0.0 (0-0.7) k/uL Basophils # 0.0 (0-0.2) k/uL Sodium 129 L (137-145) mmol/L Potassium 3.5 (3.5-5.1) mmol/L Chloride 92 L (98-107) mmol/L Carbon Dioxide 23 (22-30) mmol/L Anion Gap 14 mmol/L BUN 17 (7-17) mg/dL Creatinine 0.88 (0.52-1.04) mg/dL Est GFR (CKD-EPI)AfAm 90 (>60 ml/min/1.73 sqM) Est GFR (CKD-EPI)NonAf 78 (>60 ml/min/1.73 sqM) Glucose 369 H (74-99) mg/dL POC Glucose (mg/dL) (75-99) mg/dL POC Glu Gun Fitter ID Plasma Lactic Acid Cortez (0.7-2.0) mmol/L Calcium 8.7 (8.4-10.2) mg/dL Total Bilirubin 2.5 H (0.2-1.3) mg/dL AST 19 (14-36) U/L ALT 20 (4-34) U/L Alkaline Phosphatase 118 (38-126) U/L Total Protein 7.3 (6.3-8.2) g/dL Albumin 4.0 (3.5-5.0) g/dL Amylase 35 (30-110) U/L Lipase 37 (23-300) U/L Urine Color Yellow Urine Appearance Cloudy H (Clear) Urine pH 6.0 (5.0-8.0) Ur Specific [place] 1.029 (1.001-1.035) Urine Protein 1+ H (Negative) Urine Glucose (UA) 4+ H (Negative) Urine Ketones 2+ H (Negative) Urine Blood Trace H (Negative) Urine Nitrite Negative (Negative) Urine Bilirubin Negative (Negative) Urine Urobilinogen 2.0 (<2.0) mg/dL Ur Leukocyte Esterase Moderate H (Negative) Urine RBC 3 (0-5) /hpf Urine WBC 62 H (0-5) /hpf Ur Squamous Epith Cells 2 (0-4) /hpf Acetone, Qual (Negative) Coronavirus (PCR) (Not Detectd) 02/23/21 02/23/21 02/23/21 Range/Units 15:44 15:44 15:44 WBC (3.8-10.6) k/uL RBC (3.80-5.40) m/uL Hgb (11.4-16.0) gm/dL Hct (34.0-46.0) % MCV (80.0-100.0) fL MCH (25.0-35.0) pg MCHC (31.0-37.0) g/dL RDW (11.5-15.5) % Plt Count (150-450) k/uL MPV Neutrophils % % Lymphocytes % % Monocytes % % Eosinophils % % Basophils % % Neutrophils # (1.3-7.7) k/uL Lymphocytes # (1.0-4.8) k/uL Monocytes # (0-1.0) k/uL Eosinophils # (0-0.7) k/uL Basophils # (0-0.2) k/uL Sodium (137-145) mmol/L Potassium (3.5-5.1) mmol/L Chloride (98-107) mmol/L Carbon Dioxide (22-30) mmol/L Anion Gap mmol/L BUN (7-17) mg/dL Creatinine (0.52-1.04) mg/dL Est GFR (CKD-EPI)AfAm (>60 ml/min/1.73 sqM) Est GFR (CKD-EPI)NonAf (>60 ml/min/1.73 sqM) Glucose (74-99) mg/dL POC Glucose (mg/dL) (75-99) mg/dL POC Glu Gun Fitter ID Plasma Lactic Acid [place] 1.6 (0.7-2.0) mmol/L Calcium (8.4-10.2) mg/dL Total Bilirubin (0.2-1.3) mg/dL AST (14-36) U/L ALT (4-34) U/L Alkaline Phosphatase (38-126) U/L Total Protein (6.3-8.2) g/dL Albumin (3.5-5.0) g/dL Amylase (30-110) U/L Lipase (23-300) U/L Urine Color Urine Appearance (Clear) Urine pH (5.0-8.0) Ur Specific [place] (1.001-1.035) Urine Protein (Negative) Urine Glucose (UA) (Negative) Urine Ketones (Negative) Urine Blood (Negative) Urine Nitrite (Negative) Urine Bilirubin (Negative) Urine Urobilinogen (<2.0) mg/dL Ur Leukocyte Esterase (Negative) Urine RBC (0-5) /hpf Urine WBC (0-5) /hpf Ur Squamous Epith Cells (0-4) /hpf Acetone, Qual Positive (Negative) Coronavirus (PCR) Not Detected (Not Detectd) 02/23/21 Range/Units 17:50 WBC (3.8-10.6) k/uL RBC (3.80-5.40) m/uL Hgb (11.4-16.0) gm/dL Hct (34.0-46.0) % MCV (80.0-100.0) fL MCH (25.0-35.0) pg MCHC (31.0-37.0) g/dL RDW (11.5-15.5) % Plt Count (150-450) k/uL MPV Neutrophils % % Lymphocytes % % Monocytes % % Eosinophils % % Basophils % % Neutrophils # (1.3-7.7) k/uL Lymphocytes # (1.0-4.8) k/uL Monocytes # (0-1.0) k/uL Eosinophils # (0-0.7) k/uL Basophils # (0-0.2) k/uL Sodium (137-145) mmol/L Potassium (3.5-5.1) mmol/L Chloride (98-107) mmol/L Carbon Dioxide (22-30) mmol/L Anion Gap mmol/L BUN (7-17) mg/dL Creatinine (0.52-1.04) mg/dL Est GFR (CKD-EPI)AfAm (>60 ml/min/1.73 sqM) Est GFR (CKD-EPI)NonAf (>60 ml/min/1.73 sqM) Glucose (74-99) mg/dL POC Glucose (mg/dL) 260 H (75-99) mg/dL POC Glu Gun Fitter ID Manuel Brenner Plasma Lactic Acid [place] (0.7-2.0) mmol/L Calcium (8.4-10.2) mg/dL Total Bilirubin (0.2-1.3) mg/dL AST (14-36) U/L ALT (4-34) U/L Alkaline Phosphatase (38-126) U/L Total Protein (6.3-8.2) g/dL Albumin (3.5-5.0) g/dL Amylase (30-110) U/L Lipase (23-300) U/L Urine Color Urine Appearance (Clear) Urine pH (5.0-8.0) Ur Specific [place] (1.001-1.035) Urine Protein (Negative) Urine Glucose (UA) (Negative) Urine Ketones (Negative) Urine Blood (Negative) Urine Nitrite (Negative) Urine Bilirubin (Negative) Urine Urobilinogen (<2.0) mg/dL Ur Leukocyte Esterase (Negative) Urine RBC (0-5) /hpf Urine WBC (0-5) /hpf Ur Squamous Epith Cells (0-4) /hpf Acetone, Qual (Negative) Coronavirus (PCR) (Not Detectd) Disposition Clinical Impression: Dehydration, Gastroenteritis, UTI (urinary tract infection) Disposition: HOME SELF-CARE Condition: Stable Instructions (If sedation given, give patient instructions): Acute Nausea and Vomiting (ED) Additional Instructions: Please return to the Emergency Department if symptoms worsen or any other concerns. Prescriptions: Nitrofurantoin Monohyd/M-Cryst [Macrobid] 100 mg PO Q12HR #14 cap Ondansetron Odt [Zofran Odt] 4 mg PO Q6HR PRN #14 tab PRN Reason: Nausea Is patient prescribed a controlled substance at d/c from ED?: No Referrals: Alexis Jennings MD [Primary Care Provider] - 1-2 days Time of Disposition: 18:25
[2021-02-23 15:51] LABS: Basophils % (A) 0 %; Eosinophils % (A) 0 %; HCT 43.7 % (34.0-46.0); HGB 14.8 gm/dL (11.4-16.0); Lymphocytes # (A) 1.1 k/uL (1.0-4.8); Lymphocytes % (A) 12 %; MCH 28.6 pg (25.0-35.0); MCV 84.2 fL (80.0-100.0); Mean Platelet Volume 7.9; Monocytes # (A) 0.4 k/uL (0-1.0); Monocytes % (A) 5 %; Neutrophils # (A) 7.2 k/uL (1.3-7.7); Neutrophils % (A) 81 %; Platelet Count 199 k/uL (150-450); RBC 5.19 m/uL (3.80-5.40); RDW 12.7 % (11.5-15.5); WBC 8.9 k/uL (3.8-10.6)
[2021-02-23 15:57] LABS: Appearance,Urine Cloudy (Clear); Color,Urine Yellow; Protein,Urine 1+ (Negative); Specific Gravity,Urine 1.029 (1.001-1.035)
[2021-02-23 15:58] LABS: Bilirubin,Urine Negative (Negative); Blood,Urine Trace (Negative); Glucose,Urine (UA) 4+ (Negative); Leukocyte Esterase,Urine Moderate (Negative); Nitrite,Urine Negative (Negative); RBC,Urine 3 /hpf (0-5); Squamous Epithelial Cell,Urine 2 /hpf (0-4); WBC,Urine 62 /hpf (0-5)
[2021-02-23 15:59] LABS: Ketones,Urine 2+ (Negative)
[2021-02-23] MEDS ORDERED: SODIUM CHLORIDE 0.9% 1,000 ML IV ONE (16:02)
[2021-02-23 16:03] LABS: Calcium 8.7 mg/dL (8.4-10.2); Potassium 3.5 mmol/L (3.5-5.1); Total Bilirubin 2.5 mg/dL (0.2-1.3); Total Protein 7.3 g/dL (6.3-8.2)
[2021-02-23] MEDS ORDERED: cefTRIAXone IN SWFI 1,000 MG/10 ML SYRINGE IVP STA (17:02)
[2021-02-23] MEDS ORDERED: diphenhydrAMINE 50 MG/ML 1 ML VIAL IVP STA (17:02)
[2021-02-23] MEDS ORDERED: KETOROLAC 15 MG/ML 1 ML VIAL IVP STA (17:02)
[2021-02-23] MEDS ORDERED: IBUPROFEN 600 MG TAB PO STA (17:03)
[2021-02-23 17:51] LABS: Glucose,Whole Blood 260 mg/dL (75-99)
[2021-02-23] MEDS ORDERED: ONDANSETRON 4 MG ODT STARTER PACK 2 TAB BTL PO STA (18:26)
[2021-02-23 18:56] VITALS: BP 116/89; PULSE 98; RESP 16; TEMP 98.2
== END 2021-02-23 18:55 | disposition home or self-care (01) ==
LOC: EC 13:31
DX: E86.0 Dehydration (principal); K52.9 Noninfective gastroenteritis and colitis, unspecified; N39.0 Urinary tract infection, site not specified; E11.9 Type 2 diabetes mellitus without complications; I10 Essential (primary) hypertension; Z20.822 Contact with and (suspected) exposure to COVID-19
CPT/HCPCS: 36415; 80053; 82150; 82009; 83605; 83690; 85025; 81001; 87086; 87077; 87186; 87635; 99284; 96361; 96374; 96375; J1200; J2405; J0696; J1885; S0119

== ENCOUNTER → 2023-06-27 | Outpatient (CLI) | payer OTHER ==
--- NOTE | 2023-06-27 11:12 | MM ---
Reason for Exam: Clinical finding. Last screening mammogram was performed 12 month(s) ago. Indicated Problems: Pain of the right side. Patient History: Menarche at age 13. First Full-Term at age 25. Postmenopausal. Patient has history of breast feeding. 12/01/2019, Benign Cyst Aspiration on the left side. Risk Values: Xiomara 5 year model risk: 0.7%. NCI Lifetime model risk: 5.5%. Prior Study Comparison: 11/12/2019 Bilateral Screening Mammogram, [facility]. 11/12/2019 Left Diagnostic Mammogram, [facility]. 12/01/2019 Left Diagnostic Mammogram, [facility]. 06/26/2022 Bilateral MG screening mammo w CAD, [facility]. Tissue Density: There are scattered fibroglandular densities. Findings: Analyzed By CAD. The pattern is symmetrical. The ill-defined nodular density in the lower outer right breast located 7 cm the nipple measures 0.6 cm. There is been interval development of punctate calcifications within this region. Ultrasound is recommended for additional workup. An additional 0.3 cm nodular density slightly anterior on the craniocaudal projection. Left breast:No suspicious groups of microcalcifications, spiculated or lobular masses, architectural distortion or other secondary signs of malignancy are mammographically apparent. Overall Assessment: Incomplete: need additional imaging evaluation, BI-RAD 0 Management: Diagnostic Breast Ultrasound of the right breast. A negative mammogram report should not preclude additional follow up of suspicious palpable abnormalities. Patient should continue monthly self breast exam. A clinical breast exam by your physician is recommended on an annual basis and results should be correlated with mammographic findings. Electronically signed and approved by: Jeff Gaitan D.O. Radiologis
--- NOTE | 2023-06-27 11:13 | USB ---
Reason for Exam: Additional evaluation requested from prior study. Patient History: Menarche at age 13. First Full-Term at age 25. Postmenopausal. Patient has history of breast feeding. 12/01/2019, Benign Cyst Aspiration on the left side. Risk Values: Xiomara 5 year model risk: 0.7%. NCI Lifetime model risk: 5.5%. Technique: Method: Targeted. Doppler: Color. Patient Position: Supine. Prior Study Comparison: 11/12/2019 Left Diagnostic Mammogram, [facility]. 12/01/2019 Left Diagnostic Mammogram, [facility]. 06/26/2022 Bilateral MG screening mammo w CAD, [facility]. 07/03/2022 Right US breast workup limited RT, [facility]. Findings: The lower outer quadrant of the right breast, the axilla of the right breast and the retroareolar of the right breast were scanned. There is a hypoechoic structure which appears somewhat measuring 0.5 x 0.3 x 0.6 cm. Some internal echoes are present. This is located 7:00 position 5 cm from nipple. This appears to correlate with the mammographic findings. Suspensor nonsuspicious enhancement biopsy is recommended. This could be performed with ultrasound guidance or stereotactic core biopsy. Overall Assessment: Suspicious, BI-RAD 4 Management: Ultrasound Core Biopsy of the right breast. A clinical breast exam by your physician is recommended on an annual basis and results should be correlated with mammographic findings. This exam should not preclude additional follow-up of suspicious palpable abnormalities. Results were given to the patient verbally at the time of exam. Electronically signed and approved by: Jeff Gaitan D.O. Radiologis
== END | disposition home or self-care (01) ==
LOC: RADMAMWWP 09:12
PROVIDERS: ATTEND Family Medicine
DX: N64.4 Mastodynia (principal); N60.02 Solitary cyst of left breast
CPT/HCPCS: 77066; 76642; G0279; 77062

== ENCOUNTER → 2023-07-16 | Day surgery (SDC) | payer OTHER ==
--- NOTE | 2023-07-16 14:08 | USB ---
Risk Values: Xiomara 5 year model risk: 0.7%. NCI Lifetime model risk: 5.5%. Prior Study Comparison: 12/01/2019 Left Diagnostic Mammogram, [facility]. 06/26/2022 Bilateral MG screening mammo w CAD, [facility]. 06/27/2023 Bilateral MG 3D diag mammo w/cad JULISA, [facility]. Pathology Description: Needle Type: Mammotome Cores: 3 Skin Nicks: 1 Gauge: 13 The procedure of ultrasound guided core biopsy was explained to the patient. Benefits, alternatives, and risks were discussed. An informed consent was then obtained. The patient was placed in supine positioning for imaging and for the procedure. The overlying skin was prepped and draped in usual sterile fashion. Lidocaine buffered with bicarbonate was used as anesthetic into the skin and subcutaneous tissue up to area of concern in the 7:00 region of the right breast. A low was made with surgical scalpel. Under ultrasound guidance, a 12-gauge vacuum assisted biopsy gun device was used to obtain 3 core samples. Following this, a biopsy clip was left in lesion. The patient tolerated the procedure well without any immediate complication. The patient was kept in the radiology department for short stay after the procedure and then discharged home in stable condition. Postprocedure mammogram: The patient was transferred to mammography for physician ordered post procedure mammogram for clip placement verification. Impression: Successful, uncomplicated ultrasound guided core biopsy of area of concern in the right breast 7:00 , full pathology results to follow. Pathology Results: Results pending. Electronically signed and approved by: Gilbert Gonzales DO
--- NOTE | 2023-07-22 10:18 | MM ---
Reason for Exam: Post Procedure Mammogram. Last screening mammogram was performed 12 month(s) ago. Patient History: Menarche at age 13. First Full-Term at age 25. Postmenopausal. Patient has history of breast feeding. 12/01/2019, Benign Cyst Aspiration on the left side. Risk Values: Xiomara 5 year model risk: 0.7%. NCI Lifetime model risk: 5.5%. Prior Study Comparison: 12/01/2019 Left Diagnostic Mammogram, [facility]. 06/26/2022 Bilateral MG screening mammo w CAD, [facility]. 06/27/2023 Bilateral MG 3D diag mammo w/cad JULISA, [facility]. Tissue Density: Right: There are scattered areas of fibroglandular density. Overall Assessment: Post procedure mammogram for marker placement Management: Diagnostic Mammogram of the right breast in 6 months. Electronically signed and approved by: Gilbert Gonzales DO
== END ==
LOC: RADUSWWP 12:34
PROVIDERS: ATTEND Family Medicine
DX: N60.31 Fibrosclerosis of right breast (principal); N61.0 Mastitis without abscess
CPT/HCPCS: 88305; 77065; 19083; A4648

== ENCOUNTER → 2024-01-20 | Outpatient (CLI) | payer OTHER ==
--- NOTE | 2024-01-20 15:11 | MM ---
Reason for Exam: Follow-up at short interval from prior study. Last mammogram was performed 1 year(s) and 6 month(s) ago. Patient History: Menarche at age 13. First Full-Term at age 25. Postmenopausal. Patient has history of breast feeding. 07/16/2023, Benign US biopsy breast VAD RT on the right side. 12/01/2019, Benign Cyst Aspiration on the left side. Risk Values: Xiomara 5 year model risk: 0.8%. NCI Lifetime model risk: 6.4%. Prior Study Comparison: 06/26/2022 Bilateral MG screening mammo w CAD, [facility]. 06/27/2023 Bilateral MG 3D diag mammo w/cad JULISA, [facility]. 07/16/2023 Right MG diagnostic mammo RT wo CAD, [facility]. Tissue Density: Right: There are scattered areas of fibroglandular density. Findings: Analyzed By CAD. The pattern appears stable. Small nodule contains a core marker in the right breast. No significant interval change is evident. No suspicious groups of microcalcifications, spiculated or lobular masses, architectural distortion or other secondary signs of malignancy are mammographically apparent. Overall Assessment: Benign, BI-RAD 2 Management: Screening Mammogram of both breasts in 6 months. A negative mammogram report should not preclude additional follow up of suspicious palpable abnormalities. Patient should continue monthly self breast exam. A clinical breast exam by your physician is recommended on an annual basis and results should be correlated with mammographic findings. Note on Xiomara scores and lifetime risk: 1. A Xiomara score greater than 3% is considered moderate risk. If this is the case, consider specialist referral to assess eligibility for a risk reducing agent. 2. If overall lifetime risk for the development of breast cancer is 20% or higher, the patient may qualify for future screening with alternating mammogram and breast MRI. [facility], , 01/20/2024 3:08 PM. Electronically signed and approved by: Jeff Gaitan D.O. Radiologis
== END | disposition home or self-care (01) ==
LOC: RADMAMWWP 14:50
PROVIDERS: ATTEND Family Medicine
DX: N63.10 Unspecified lump in the right breast, unspecified quadrant
CPT/HCPCS: 77061; 77065

== ENCOUNTER → 2024-02-25 | Day surgery (SDC) | payer OTHER ==
[2024-01-12 11:09] VITALS: BMI 36.5
[~2024-02-25] MED LIST: LIDOCAINE 1% (10MG/ML) FOR IV START INTRADERMA PRN; LIDOCAINE 1% INJ 10MG/ML (20 ML MDV) ONE; PROPOFOL 10 MG/ML 20 ML VIAL IV ONE
[2024-02-25] MEDS: IV FLUID CONTINUATION 1,000 ML IV ONE (07:02)
[2024-02-25] MEDS: LACTATED RINGERS 1,000 ML IV SCH (07:03)
[2024-02-25 07:08] VITALS: TEMP 97.7
[2024-02-25 07:32] LABS: Glucose,Whole Blood 155 mg/dL (70-110)
--- NOTE | 2024-02-25 07:57 | P.GSHP ---
History of Present Illness H&P Date: 02/25/24 CHIEF COMPLAINT: Colon screen HISTORY OF PRESENT ILLNESS: The patient is a 53-year-old female who presents for colon screen. Lower endoscopy was offered for further evaluation and management. PAST MEDICAL HISTORY: Please see list. PAST SURGICAL HISTORY: Please see list. MEDICATIONS: Please see list. ALLERGIES: Please see list. SOCIAL HISTORY: No illicit drug use FAMILY HISTORY: No reports of Crohn disease or ulcerative colitis. REVIEW OF ORGAN SYSTEMS: CONSTITUTIONAL: No reports of fevers or chills. PHYSICAL EXAM: VITAL SIGNS: Stable GENERAL: Well-developed pleasant in no acute distress. HEENT: No scleral icterus. Extraocular movements grossly intact. Moist buccal mucosa. NECK: Supple without lymphadenopathy. CHEST: Unlabored respirations. Equal bilateral excursions. CARDIOVASCULAR: Regular rate and rhythm. Distal 2+ pulses. ABDOMEN: Soft, nontender, nondistended. MUSCULOSKELETAL: No clubbing, cyanosis, or edema. ASSESSMENT: 1. Colon screen. PLAN: 1. Recommend proceeding with a lower endoscopy Past Medical History Past Medical History: Diabetes Mellitus, Hyperlipidemia, Hypertension Additional Past Medical History / Comment(s): type 2 DM History of Any Multi-Drug Resistant Organisms: None Reported Past Surgical History: Cholecystectomy, Orthopedic Surgery Additional Past Surgical History / Comment(s): left femur/ leg with pins and plate, RIGHT ANKLE PINS. Cracked pelvis with surgery Past Anesthesia/Blood Transfusion Reactions: No Reported Reaction Additional Past Anesthesia/Blood Transfusion Reaction / Comment(s): No hx of blood transfusion. Smoking Status: Former smoker - Past Family History Father Family Medical History: Cancer Additional Family Medical History / Comment(s): Lymph nodes cancer Medications and Allergies Home Medications Medication Instructions Recorded Confirmed Type Rosuvastatin [Crestor] 10 mg PO HS 06/30/23 02/25/24 History lisinopriL 2.5 mg PO HS 06/30/23 02/25/24 History metFORMIN HCL [Glucophage XR] 750 mg PO 1700 06/30/23 02/25/24 History Dapagliflozin Propanediol [Farxiga] 5 mg PO HS 01/12/24 02/25/24 History Insulin Glargine,Hum.rec.anlog 10 units SQ HS 01/12/24 02/25/24 History [Lantus Solostar Pen] Allergies Allergy/AdvReac Type Severity Reaction Status Date / Time No Known Allergies Allergy Verified 02/25/24 07:04 Surgical - Exam Vital Signs Temp Pulse Resp BP Pulse Ox 97.7 F 73 18 151/78 97 02/25/24 07:07 02/25/24 07:07 02/25/24 07:07 02/25/24 07:07 02/25/24 07:07 Results - Labs Abnormal Lab Results - Last 24 Hours (Table) 02/25/24 Range/Units 07:30 POC Glucose (mg/dL) 155 H (70-110) mg/dL
--- NOTE | 2024-02-25 08:08 | P.PCN ---
Date of Procedure: 03/16/24 Description of Procedure: PREOPERATIVE DIAGNOSIS: Colonoscopy screening. POSTOPERATIVE DIAGNOSIS: Colonoscopy screening. Internal and external hemorrhoids grade 4 OPERATION: Colonoscopy to the ascending colon SURGEON: Latasha Ambriz MD. ANESTHESIA: MAC. INDICATIONS: The patient is a 53-year-old female who presents for colonoscopy screening. Benefits and risks were described and informed consent was obtained. DESCRIPTION OF PROCEDURE: The patient had undergone MiraLAX Gatorade prep. The patient had been brought into the operating room and laid in the left lateral decubitus position. After adequate intravenous sedation, the rectum was examined with 2% lidocaine jelly. No external hemorrhoids were encountered. The rectal tone was within normal limits. No lesions were palpated in the rectal vault. An Olympus colonoscope was advanced through a very tortuous colon to the ascending colon. The prep was excellent. No large scattered diverticulosis was encountered. No colonic polyps were found. No evidence of focal colitis was found. Retroflexion of the scope demonstrated grade 1 internal hemorrhoids without active bleeding or inflammation. The colon was desufflated. The patient had tolerated the procedure well. Withdrawal time was over 6 minutes. FINDINGS: Aronchick preparation quality scale 1 (1-5) Internal hemorrhoids, grade 4 External prolapsed hemorrhoids, grade 4 No arteriovenous malformations. No adenomatous polyps. No focal colitis. No large sigmoid diverticulosis Incomplete view of cecum requiring barium enema RECOMMENDATIONS: Lower endoscopy in 5 years2028 Barium enema needed for assessing cecum Plan - Discharge Summary Discharge Rx Participant: No New Discharge Prescriptions: Continue lisinopriL 2.5 mg PO HS metFORMIN HCL [Glucophage XR] 750 mg PO 1700 Dapagliflozin Propanediol [Farxiga] 5 mg PO HS Insulin Glargine,Hum.rec.anlog [Lantus Solostar Pen] 10 units SQ HS Rosuvastatin [Crestor] 10 mg PO HS Discharge Medication List Rosuvastatin [Crestor] 10 mg PO HS 06/30/23 [History] lisinopriL 2.5 mg PO HS 06/30/23 [History] metFORMIN HCL [Glucophage XR] 750 mg PO 1700 06/30/23 [History] Dapagliflozin Propanediol [Farxiga] 5 mg PO HS 01/12/24 [History] Insulin Glargine,Hum.rec.anlog [Lantus Solostar Pen] 10 units SQ HS 01/12/24 [History] Follow up Appointment(s)/Referral(s): Latasha Ambriz MD [STAFF PHYSICIAN] - 03/16/24 2:00 pm Patient Instructions/Handouts: Barium Enema (ED) Activity/Diet/Wound Care/Special Instructions: Repeat colonoscopy 5 years, 2028 Discharge Disposition: HOME SELF-CARE
[2024-02-25 08:25] VITALS: BP 119/75; PULSE 67; RESP 20
[2024-02-25 08:25] LABS: Glucose,Whole Blood 159 mg/dL (70-110)
--- NOTE | 2024-02-25 12:33 | FL ---
EXAMINATION TYPE: FL barium enema DATE OF EXAM: 02/25/2024 11:19 AM CLINICAL INDICATION:Female, 53 years old with history of Incomplete scope at cecum, no bx; COMPARISON: 01/09/2021 TECHNIQUE: The procedure was explained and patient history elicited. All patient questions were answ ered prior to beginning. Multiple spot fluoroscopic images of the colon were obtained after the recta l administration of liquid barium as the contrast agent. Multiple postprocedural overhead images, w ere obtained and reviewed. Fluoroscopic time: 4 minutes 14 seconds Fluoroscopic images:0 Radiographs taken: 45 DAP: not recorded [id number] FINDINGS: The inspector rag sorting abdominal radiograph demonstrates a normal bowel gas pattern without dilated loo ps of small or large bowel. There is no evidence for organomegaly or pneumoperitoneum. No abnormal calcifications. The visualized osseous structures are intact. The colon demonstrates normal course and contour without evidence of focal stricture, internal fillin g defects, or abnormal outpouching. Views of the cecum with manual compression are unremarkable. T he appendix is visualized overlapping other loops of bowel. Postevacuation images are unremarkable. IMPRESSION: Limited evaluation due to redundant colon, within the limitations, no evidence for mass. [facility], , 02/25/2024 12:31 PM
== END | disposition home or self-care (01) ==
LOC: ORWHC2ENDO 06:53
PROVIDERS: ATTEND Surgery Plastic and Reconstructive Surgery
DX: Z12.11 Encounter for screening for malignant neoplasm of colon (principal); K64.3 Fourth degree hemorrhoids; K64.4 Residual hemorrhoidal skin tags; K56.2 Volvulus; E11.9 Type 2 diabetes mellitus without complications; I10 Essential (primary) hypertension; E78.5 Hyperlipidemia, unspecified; Z79.84 Long term (current) use of oral hypoglycemic drugs; Z79.4 Long term (current) use of insulin; Z79.899 Other long term (current) drug therapy; Z87.891 Personal history of nicotine dependence
CPT/HCPCS: 74270; J2003; J2704; G0121; 45378

== ENCOUNTER 2024-11-25 16:42 | Emergency (ER) | payer OTHER ==
[2024-11-25 16:53] VITALS: RESP 18
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
[2024-11-25 19:47] VITALS: BP 131/79; PULSE 81; TEMP 97.9
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
== END 2024-11-25 19:48 | disposition home or self-care (01) ==
LOC: EC 16:42
DX: M79.652 Pain in left thigh (principal); Z87.891 Personal history of nicotine dependence; V89.2XXA Person injured in unspecified motor-vehicle accident, traffic, initial encounter; Y92.410 Unspecified street and highway as the place of occurrence of the external cause
CPT/HCPCS: 70450; 72125; 99284